=== PATIENT | female | born 1945 ===

== ENCOUNTER 2021-01-15 08:17 | Day surgery (SDC) | payer OTHER ==
[~2021-01-15 08:17] MED LIST: CLONAZEPAM1 M1 PO; GABAPENTIN600 MG PO; HUMALOG100 UNIT/2; LANTUS SOL100 UNIT/1; PAXIL10 MG/5 ML PO; PROTONIX40 MG PO; RESTORIL30 M1 PO; TRAZODONE HCL100 MG PO
[2021-01-15] MEDS ORDERED: MACROBID 100 M100 MG PO (12:26)
[2021-01-15] MEDS ORDERED: ULTRACET PO (12:26)
== END 2021-01-15 16:30 | disposition home or self-care (01) ==
LOC: CIR.AMB 08:17
PROVIDERS: ATTEND Obstetrics & Gynecology Gynecology
DX: N81.3 Complete uterovaginal prolapse (principal); Z20.822 Contact with and (suspected) exposure to COVID-19